=== PATIENT | male | born 1985 | race Two or more races ===

== ENCOUNTER 2025-01-01 18:59 | Emergency (ER) | payer MEDICAID, OTHER ==
[~2025-01-01] VITALS: Ht 172.7 cm; Wt 148.8 kg
--- NOTE | 2025-01-01 19:59 | ED.PDOC ---
GI ASSESSMENT HPI Comments HPI: Poor Historian. 39-year-old male presents to emergency department for evaluation of epigastric pain that happened today after he drank some water and ate some food. Denies any associated nausea or vomiting. Patient has history of gastric bypass two years ago. Patient has history of gallstones. At the time of my evaluation patient's abdominal pain has completely resolved without any interventions. He is able to tolerate water during my evaluation without any pain. When the patient had the pain it was constant nonradiating. Patient was worried that maybe his gastric bypass surgery has been injured from maybe lifting heavy weight today working on his car. Past Medical history: Gallstones Past Surgical history: Gastric Bypass Medications: Denies Allergies: NKDA Social History: denies ETOH, denies tobacco use, denies drug use Initial vitals: BP: 120/81 HR: 73 RR: 16 O2 Sat.: 98% Temp.: 98.3F REVIEW OF SYSTEMS: CONSTITUTIONAL: Denies acute: fever, diaphoresis, chills, generalized weakness. HEAD: Denies acute: headache, photophobia Eyes: Denies acute: Double vision, vision loss, eye pain, eye discharge. EARS: Denies acute: tinnitus, hearing loss, ear discharge, ear pain, THROAT: Denies acute: sore throat, swelling, difficulty swallowing , pain with swallowing, change in voice. NECK: Denies acute: neck pain, neck swelling, stiff neck. HEART: Denies acute : chest pain, palpitations, LUNGS: Denies acute: SOB, wheezing, cough, hemoptysis ABDOMEN: Denies acute: Nausea, Vomiting, diarrhea, melena , hematemesis, hematochezia SKIN: Denies acute: rash, redness, lesions, itchiness. EXTREMITIES: Denies acute: calf pain, numbness, tingling, weakness, denies pain in extremity. Denies acute: Low back pain. Neuro: Denies acute: focal neurological deficit, motor or sensory focal neurological deficit, tremors, seizure like activity, confusion, dizziness, change in mental status, loss of bowel or bladder function, cauda equina like symptoms. : Denies acute: dysuria, hematuria, flank pain, increase in urinary frequency. PSYCH: Denies acute: hallucination, suicidal ideation, homicidal ideation. PHYSICAL EXAM: General: ---no-----acute distress, awake and alert. Head: normocephalic, atraumatic. Neck: supple, trachea is midline, no swelling. Throat: Normal phonation. Eyes:, no erythema, no purulent discharge, no proptosis, no icterus. Heart: regular rate, regular rhythm, no significant murmur appreciated. Lungs: no apparent respiratory distress, Able to speak in full sentences. No wheezing, no rhonchi, no crackles. No stridors Clear to auscultation bilaterally. Abdomen: non tender to palpation, non distended, soft, no guarding, no rebound, + bowel sounds. Morbidly obese Neuro: Awake, Alert, oriented to name, self, situation, follows commands GCS=15. Speech is normal. Skin: no petechia, no purpura, no cyanosis, non-pale, not jaundice. Lower extremities: --no - Pitting edema no deformity, no focal swelling, no calf TTP. Makes eye contact. moves all four extremities. Face: no apparent facial droop. Ambulating in the ED independently. ED COURSE: Time Seen by MD: 19:58 Reviewed Notes: Medications, Allergies Allergies: Coded Allergies: NO KNOWN ALLERGIES (Unverified , 01/01/25) Information Source: Patient Mode of Arrival: Ambulatory Was a procedure done? Was a procedure done?: No GI differential Dx Differential Diagnosis: Other (DDX include but not limited to diverticulitis, colitis, gastroenteritis, acute abdomen, SBO, enteritis, constipation, volvulus, appendicitis, Gallbladder disease, choledocolithiasis, ascending cholangitis, pancreatitis, intraAbdominal mass/neoplasm, hepatitis, UTI, pylonephritis, kidney stone, aneurysm, dissection, Inflammatory bowel disease, gastroparesis, ischemic bowel.) X-Ray, Labs, Meds, VS Vital Signs Date Time Temp Pulse Resp B/P (MAP) Pulse Ox O2 Delivery O2 Flow Rate FiO2 01/01/25 21:40 98.3 66 18 133/92 (106) 98 98.3 01/01/25 21:40 Room Air* 0 21 01/01/25 19:01 98.3 73 16 120/81 (94) 98 98.3 Lab Test 01/01/25 20:00 01/01/25 00:00 Range/Units White Blood Count 9.3 4.4-10.8 10^3/uL Red Blood Count 5.57 4.5-5.90 10^6/uL Hemoglobin 16.0 13.5-17.5 g/dL Hematocrit 46.6 41.0-53.0 % Mean Corpuscular Volume 83.7 80.0-100.0 fL Mean Corpuscular Hemoglobin 28.8 28.0-32.0 pg Mean Corpuscular Hemoglobin Concent 34.4 32.0-36.0 g/dL Red Cell Distribution Width 14.0 11.8-14.3 % Platelet Count 268 140-450 10^3/uL Mean Platelet Volume 8.2 6.9-10.8 fL Neutrophils (%) (Auto) 74.9 37.0-80.0 % Lymphocytes (%) (Auto) 16.8 10.0-50.0 % Monocytes (%) (Auto) 6.6 0.0-12.0 % Eosinophils (%) (Auto) 1.1 0.0-7.0 % Basophils (%) (Auto) 0.6 0.0-2.0 % Neutrophils # (Auto) 7.0 1.6-8.6 10 ^3/uL Lymphocytes # (Auto) 1.6 0.4-5.4 10 ^3/uL Monocytes # (Auto) 0.6 0-1.3 10 ^3/uL Eosinophils # (Auto) 0.1 0-0.8 10 ^3/uL Basophils # (Auto) 0.1 0-0.2 10 ^3/uL Nucleated Red Blood Cells 0.2 % Sodium Level 141 136-145 mmol/L Potassium Level 4.8 3.5-5.1 mmol/L Chloride Level 107 98-107 mmol/L Carbon Dioxide Level 28 20-31 mmol/L Anion Gap 6 5-15 Blood Urea Nitrogen 10 9-23 mg/dL Creatinine 0.92 0.700-1.30 mg/dL Glomerular Filtration Rate Calc 107 >90 mL/min BUN/Creatinine Ratio 10.9 10.0-20.0 Serum Glucose 84 74-106 mg/dL Lactic Acid Level 1.8 0.4-2.0 mmol/L Calcium Level 9.9 8.7-10.4 mg/dL Total Bilirubin 0.4 0.2-1.0 mg/dL Aspartate Amino Transferase (AST) 18 13-40 U/L Alanine Aminotransferase (ALT) 24 7-40 U/L Alkaline Phosphatase 93 46-116 U/L Troponin I High Sensitivity < 3 L </=54 ng/L Total Protein 7.3 5.7-8.2 g/dL Albumin 4.5 3.2-4.8 g/dL Lipase 29 12-53 U/L Urine Color Yellow Yellow Urine Clarity Clear Clear Urine pH 5.5 5.0-9.0 Urine Specific [place] 1.028 1.001-1.035 Urine Protein Negative Negative Urine Ketones Negative Negative Urine Blood Negative Negative /uL Urine Nitrite Negative Negative Urine Bilirubin Negative Negative Urine Urobilinogen Normal Negative mg/dL Urine Leukocyte Esterase Negative Negative /uL Urine RBC 1 0 - 3 /hpf Urine Microscopic WBC 2 0-3 /HPF Urine Squamous Epithelial Cells Few <5 /hpf Urine Bacteria Few H None Seen /hpf Urine Mucus Few None Seen Urine Glucose Normal Normal mg/dL [place] [id number] Ph: [phone] DIAGNOSTIC IMAGING Diagnostic Imaging Report : [id number] Signed PATIENT: LYNSEY FUCHS ACCT: [id number] UNIT: [id number] : 1985 LOC: ER ROOM / BED: / AGE / SEX: 39 / M ADM STATUS: REG ER SERVICE 53 ORDERING PHYSICIAN: DONA BOUCHER DO PROCEDURE(s): ABPL - CT AB PEL WO CON-NO ORAL OR IV REASON: epig pain ORDER NUMBER(s): [id number], ACCESSION NUMBER(s): [id number] Exam: CT CT AB PEL WO CON-NO ORAL OR IV History: epig pain Comparison Study: None TECHNIQUE: Multidetector CT of the abdomen and pelvis without IV contrast. Axial, coronal and sagittal multiplanar reformats were obtained from the axial data set by the technologist. Radiation Dose Information: CT Dose: CTDI volume is 27.25 mGy. Dose-length product is 1716.41 mGy*cm FINDINGS: The lung bases are clear. Partially visualized heart is unremarkable. Mild hepatosplenomegaly. Otherwise, liver, spleen, gallbladder, pancreas and adrenal glands unremarkable. Kidneys, ureters and urinary bladder are unremarkable. Prostate is unremarkable. Postsurgical changes of gastric bypass. Mild wall thickening of the bypassed stomach which is most likely from inadequate distension. Mild wall thickening of proximal small bowel loops which is most likely from inadequate distension. Small bowel loops are fluid-filled and nondistended. Appendix is unremarkable. Small to moderate amount of fecal material within the colon. Rectal wall thickening. No evidence of intraperitoneal free air or free fluid. No evidence of aortic aneurysm. No significant lymphadenopathy. Small fat containing right inguinal hernia. Small fat containing umbilical hernia. The soft tissues are unremarkable. No destructive osseous lesions are noted. IMPRESSION: Rectal wall thickening which may be due to inadequate distention/proctitis. Mild wall thickening of the bypassed stomach and proximal small bowel loops which may be due to inadequate distention with gastroenteritis not completely excluded. Postsurgical changes of gastric bypass. ATED BY: LAUREN CASILLAS DO DICTATED DATE/TIME: 01/01/252055 SIGNED BY: LAUREN CASILLAS DO SIGNED DATE/TIME: 01/01/252055 CC: Time of 1ST Reevaluation: 00:00 Reevaluation 1ST: Unchanged Patient Education/Counseling: Diagnosis, Treatment Family Education/Counseling: No Family Present Comments Patient presented with the above HPI.--epigastric pain----workup was initiated. patient was found with the above mentioned diagnosis. the following medications were ordered: please refer to order lists of meds and tests obtained by myself Dr. Boucher. Patient ED course and VS have been stabilized. Patient has been reassessed in the ED and remained in a stable condition. Pertinent incidental findings were discussed with the patient and/or family. Patient/family voices understanding and is agreeable with plan. Patient has been observed in the ED adequate length of time to insure improvement/stability. Escalation of care considered: Consideration of escalation to observation or admission Patient was DISCHARGED home in a stable condition. All the reports of any imaging studies that were ordered by myself were reviewed by myself. Departure 1 Departure Time of Disposition: 21:04 Impression: Primary Impression: Epigastric pain Disposition: 01 HOME / SELF CARE / HOMELESS Condition: Stable Additional Instructions: Additional instructions: You MUST follow-up with your primary care/family doctor in 1 to 2 days. If you are unable to see your primary care/family doctor, please return to our emergency room for re-assessment and re-evaluation in 1 to 2 days. Return to the emergency room here in our facility or to the nearest ER [facility] if your symptoms change or worsen. CONSULTATIONS: you MUST Follow-up for consultation as soon as possible with: -gastroenterology and your gastric bypass surgeon in 1-2 days. Please call for appointment. You MUST call the consultants office yourself to make an appointment. You may need to arrange that through your insurance and/or your primary/family doctor. If you are unable to see the events solutions consultant in 1 to 2 days, you must return to our emergency room (or any other ER of your choice) for re-assessment and re- evaluation. Adequate fluid hydration. Eat very small portion food. Eat slowly. Avoid fatty greasy spicy food. Avoid caffeinated products. Avoid NSAIDs. Below is a copy of your radiological report for follow up: [place] [address] Ph: [phone] DIAGNOSTIC IMAGING Diagnostic Imaging Report : [id number] Signed PATIENT: LYNSEY FUCHS ACCT: [id number] UNIT: [id number] : 1985 LOC: ER ROOM / BED: / AGE / SEX: 39 / M ADM STATUS: REG ER SERVICE 53 ORDERING PHYSICIAN: DONA BOUCHER DO PROCEDURE(s): ABPL - CT AB PEL WO CON-NO ORAL OR IV REASON: epig pain ORDER NUMBER(s): [id number], ACCESSION NUMBER(s): [id number] Exam: CT CT AB PEL WO CON-NO ORAL OR IV History: epig pain Comparison Study: None TECHNIQUE: Multidetector CT of the abdomen and pelvis without IV contrast. Axial, coronal and sagittal multiplanar reformats were obtained from the axial data set by the technologist. Radiation Dose Information: CT Dose: CTDI volume is 27.25 mGy. Dose-length product is 1716.41 mGy*cm FINDINGS: The lung bases are clear. Partially visualized heart is unremarkable. Mild hepatosplenomegaly. Otherwise, liver, spleen, gallbladder, pancreas and adrenal glands unremarkable. Kidneys, ureters and urinary bladder are unremarkable. Prostate is unremarkable. Postsurgical changes of gastric bypass. Mild wall thickening of the bypassed stomach which is most likely from inadequate distension. Mild wall thickening of proximal small bowel loops which is most likely from inadequate distension. Small bowel loops are fluid-filled and nondistended. Appendix is unremarkable. Small to moderate amount of fecal material within the colon. Rectal wall thickening. No evidence of intraperitoneal free air or free fluid. No evidence of aortic aneurysm. No significant lymphadenopathy. Small fat containing right inguinal hernia. Small fat containing umbilical hernia. The soft tissues are unremarkable. No destructive osseous lesions are noted. IMPRESSION: Rectal wall thickening which may be due to inadequate distention/proctitis. Mild wall thickening of the bypassed stomach and proximal small bowel loops which may be due to inadequate distention with gastroenteritis not completely excluded. Postsurgical changes of gastric bypass. ATED BY: LAUREN CASILLAS DO DICTATED DATE/TIME: 01/01/252055 SIGNED BY: LAUREN CASILLAS DO SIGNED DATE/TIME: 01/01/252055 CC: Discharged With: Self Critical Care Note Critical Care Time?: No I personally scribed for DONA BOUCHER DO ([email or web address]) on 01/01/25 at 19:59. Electronically submitted by Ward Villar ([email or web address]). I personally scribed for DONA BOUCHER DO ([email or web address]) on 01/01/25 at 20:13. Electronically submitted by Ward Villar ([email or web address]). I personally scribed for DONA BOUCHER DO ([email or web address]) on 01/01/25 at 21:44. Electronically submitted by Ward Villar ([email or web address]). DONA BOUCHER DO Jan 01, 2025 19:59
[2025-01-01 20:19] LABS: Basophils # (auto) 0.1 10 ^3/uL (0-0.2); Basophils % (auto) 0.6 % (0.0-2.0); Eosinophils # (auto) 0.1 10 ^3/uL (0-0.8); Eosinophils % (auto) 1.1 % (0.0-7.0); Hematocrit 46.6 % (41.0-53.0); Lymphocytes # (auto) 1.6 10 ^3/uL (0.4-5.4); Lymphocytes % (auto) 16.8 % (10.0-50.0); Mean Corpuscular Hemoglobin 28.8 pg (28.0-32.0); Mean Corpuscular Hgb Conc. 34.4 g/dL (32.0-36.0); Mean Corpuscular Volume 83.7 fL (80.0-100.0); Monocytes # (auto) 0.6 10 ^3/uL (0-1.3); Monocytes % (auto) 6.6 % (0.0-12.0); Neutrophils % (auto) 74.9 % (37.0-80.0); Nucleated Red Blood Cells % 0.2 %; Platelet Count (auto) 268 10^3/uL (140-450); Red Blood Cells 5.57 10^6/uL (4.5-5.90); White Blood Cell 9.3 10^3/uL (4.4-10.8)
[2025-01-01 20:35] LABS: Alanine Aminotransferase 24 U/L (7-40); Albumin 4.5 g/dL (3.2-4.8); Alkaline Phosphatase 93 U/L (46-116); Anion Gap 6 (5-15); Aspartate Aminotransferase 18 U/L (13-40); BUN/Creatinine Ratio 10.9 (10.0-20.0); Blood Urea Nitrogen 10 mg/dL (9-23); Calcium 9.9 mg/dL (8.7-10.4); Carbon Dioxide 28 mmol/L (20-31); Chloride 107 mmol/L (98-107); Glucose 84 mg/dL (74-106); Lipase 29 U/L (12-53); Potassium 4.8 mmol/L (3.5-5.1); Sodium 141 mmol/L (136-145); Total Protein 7.3 g/dL (5.7-8.2)
[2025-01-01 20:36] LABS: Bilirubin, Total 0.4 mg/dL (0.2-1.0)
[2025-01-01 20:40] LABS: Urine Bacteria FEW /hpf (None Seen); Urine Blood Negative /uL (Negative); Urine Clarity Clear (Clear); Urine Color Yellow (Yellow); Urine Mucus FEW (None Seen); Urine Protein, UAD Negative (Negative); Urine Specific Gravity 1.028 (1.001-1.035); Urine Squamous Epithelial Cell FEW /hpf (<5); Urine Urobilinogen Normal (Negative); Urine WBC 2 /HPF (0-3); Urine pH 5.5 (5.0-9.0)
--- NOTE | 2025-01-01 20:58 | DVH ---
Exam: CT CT AB PEL WO CON-NO ORAL OR IV History: epig pain Comparison Study: None TECHNIQUE: Multidetector CT of the abdomen and pelvis without IV contrast. Axial, coronal and sagitta l multiplanar reformats were obtained from the axial data set by the technologist. Radiation Dose Information: CT Dose: CTDI volume is 27.25 mGy. Dose-length product is 1716.41 mGy*cm FINDINGS: The lung bases are clear. Partially visualized heart is unremarkable. Mild hepatosplenomegaly. Otherwise, liver, spleen, gallbladder, pancreas and adrenal glands unremarka ble. Kidneys, ureters and urinary bladder are unremarkable. Prostate is unremarkable. Postsurgical changes of gastric bypass. Mild wall thickening of the bypassed stomach which is most li wood from inadequate distension. Mild wall thickening of proximal small bowel loops which is most lik porfirio from inadequate distension. Small bowel loops are fluid-filled and nondistended. Appendix is unr emarkable. Small to moderate amount of fecal material within the colon. Rectal wall thickening. No evidence of intraperitoneal free air or free fluid. No evidence of aortic aneurysm. No significant lymphadenopathy. Small fat containing right inguinal hernia. Small fat containing umbilical hernia. The soft tissues are unremarkable. No destructive osseous lesions are noted. IMPRESSION: Rectal wall thickening which may be due to inadequate distention/proctitis. Mild wall thickening of the bypassed stomach and proximal small bowel loops which may be due to inade quate distention with gastroenteritis not completely excluded. Postsurgical changes of gastric bypass.
[2025-01-01 21:40] VITALS: BP 133/92; PULSE 66; RESP 18; TEMP 98.3; O2SAT 98
== END 2025-01-01 22:56 | disposition home or self-care (01) ==
LOC: ER 18:59
DX: R10.13 Epigastric pain (principal); Z98.84 Bariatric surgery status
CPT/HCPCS: 36415; 74176; 80053; 81001; 83605; 83690; 84484; 85025